=== PATIENT | female | born 1970 | race Caucasian/White ===

== ENCOUNTER 2018-04-26 07:20 | Emergency (ER) | payer BC ==
[2018-04-26 07:38] VITALS: BP 108/64
--- NOTE | 2018-04-26 07:52 | UC ---
Eye Complaint HPI - HPI Summary HPI Summary: Awoke this AM with left eye redness, swelling and crusting discharge. - History of Current Complaint Chief Complaint: UCEye Stated Complaint: LEFT EYE Time Seen by Provider: 04/26/18 07:42 Hx Obtained From: Patient Hx Last Menstrual Period: 04/10/18 ?: No Onset/Duration: Sudden Onset, Worse Since - this AM Timing: Constant Severity Initially: Mild Severity Currently: Mild Pain Intensity: 2 Location of Injury: Conjunctiva Character: Dull - "annoying", Foreign Body Sensation - Feels like there's something in it. Aggravating Factor(s): Contact Lens, Blinking Alleviating Factor(s): Nothing Associated Signs And Symptoms: Positive: Drainage (Clear), Swelling Related History: Similar Episode - pink eye - Risk Factors Penetrating Injury Risk Factor: Negative Globe Rupture Risk Factors: Negative - Allergies/Home Medications Allergies/Adverse Reactions: Allergies Allergy/AdvReac Type Severity Reaction Status Date / Time No Known Allergies Allergy Verified 04/26/18 07:30 Home Medications: Home Medications Ascorbic Acid TAB* [Vitamin C TAB*] 1 tab PO DAILY 04/26/18 [History Confirmed 04/26/18] Flaxseed 1 tab PO DAILY 04/26/18 [History Confirmed 04/26/18] PMH/Surg Hx/FS Hx/Imm Hx Previously Healthy: Yes - Surgical History Surgical History: Yes Surgery Procedure, Year, and Place: neurocytoma removal. T&A. - Family History Known Family History: Positive: Hypertension Negative: Cardiac Disease, Diabetes - Social History Occupation: Employed Full-time Lives: With Family Alcohol Use: Occasionally Substance Use Type: None Smoking Status (MU): Never Smoked Tobacco Have You Smoked in the Last Year: No - Immunization History Most Recent Influenza Vaccination: JUN 2016 Review of Systems Eyes: Drainage, Eye Redness Is Patient Immunocompromised?: No All Other Systems Reviewed And Are Negative: Yes Physical Exam Triage Information Reviewed: Yes Appearance: Well-Appearing, No Pain Distress, Well-Nourished Vital Signs: Initial Vital Signs Temp 98.0 F 04/26/18 07:32 Pulse 65 04/26/18 07:32 Resp 16 04/26/18 07:32 BP 108/64 04/26/18 07:32 Pulse Ox 99 04/26/18 07:32 Vital Signs Reviewed: Yes Eyes: Positive: Conjunctiva Inflamed - OS. No FB with lid inversion ENT Exam: Normal Neck exam: Normal Respiratory Exam: Normal Cardiovascular Exam: Normal Musculoskeletal Exam: Normal Neurological Exam: Normal Psychological Exam: Normal Skin Exam: Normal Eye Complaint Course/Dx - Differential Dx/Diagnosis Differential Diagnosis/HQI/PQRI: Conjunctivitis, Corneal Abrasion, Foreign Body Provider Diagnoses: Viral conjunctivitis Discharge - Sign-Out/Discharge Documenting (check all that apply): Patient Departure - Discharge Plan Condition: Stable Disposition: HOME Prescriptions: Erythromycin OPTH OINT* [Erythromycin 0.5% OPTH OINT*] 1 applic LEFT EYE TID #1 ophth.oint Patient Education Materials: Conjunctivitis (ED), Erythromycin (Into the eye) Referrals: Sergio Merino MD [Primary Care Provider] - - Billing Disposition and Condition Condition: STABLE Disposition: Home
== END 2018-04-26 08:01 | disposition home or self-care (01) ==
LOC: UCCORT 07:20
DX: B30.9 Viral conjunctivitis, unspecified (principal)
CPT/HCPCS: 99212; G0463

== ENCOUNTER 2019-12-16 07:50 | Emergency (ER) | payer BC ==
[2019-12-16 08:11] VITALS: BP 101/70
--- NOTE | 2019-12-16 08:44 | UC ---
Throat Pain/Nasal Bebo HPI - HPI Summary HPI Summary: 49 yo with 3 days of sore throat and drainage, morning cough, no fever. - History of Current Complaint Chief Complaint: UCRespiratory Stated Complaint: COUGH LARYNGITIS Time Seen by Provider: 12/16/19 08:38 Hx Obtained From: Patient Hx Last Menstrual Period: 12/02/19 Onset/Duration: Gradual Onset, Lasting Days - 3 Severity: Mild Pain Intensity: 0 Cough: Productive - in morning only Associated Signs & Symptoms: Positive: Dysphagia, Hoarseness, Nasal Discharge. Negative: Wheezing, Sinus Discomfort, Fever, Vomiting - Epiglottits Risk Factors Epiglottis Risk Factors: Negative - Allergies/Home Medications Allergies/Adverse Reactions: Allergies Allergy/AdvReac Type Severity Reaction Status Date / Time No Known Allergies Allergy Verified 12/16/19 07:59 Home Medications: Home Medications [id number] 2,000 mcg SL DAILY 01/15/14 [History Confirmed 12/16/19] Cholecalciferol [Vitamin D3] 2,000 unit PO DAILY 10/10/15 [History Confirmed 08/26] Ascorbic Acid TAB* [Vitamin C TAB*] 1 tab PO DAILY 04/26/18 [History Confirmed 12/16/19] Flaxseed 1 tab PO DAILY 04/26/18 [History Confirmed 12/16/19] Doxylam/PE/Dm/Acetaminophen/GG [Mucinex Fast-Max Day/Nigh] 1 cap PO PRN [History] Doxylam/PE/Dm/Acetaminophen/GG [Mucinex Sinus-Max Day/Nig] 1 cap PO PRN [History] PMH/Surg Hx/FS Hx/Imm Hx Previously Healthy: Yes - Surgical History Surgical History: Yes Surgery Procedure, Year, and Place: neurocytoma removal 1998. T&A. - Family History Known Family History: Positive: Hypertension, Respiratory Disease - both parents [place] lung Negative: Cardiac Disease, Diabetes - Social History Occupation: Employed Full-time Lives: With Family Alcohol Use: Rare Substance Use Type: None Smoking Status (MU): Never Smoked Tobacco Have You Smoked in the Last Year: No - Immunization History Most Recent Influenza Vaccination: JUN 2016 Review of Systems All Other Systems Reviewed And Are Negative: Yes Constitutional: Positive: Fatigue. Negative: Fever Skin: Positive: Negative Eyes: Positive: Negative ENT: Positive: Sore Throat, Sinus Congestion Respiratory: Positive: Cough - mild. Negative: Shortness Of Breath Cardiovascular: Negative: Palpitations, Chest Pain Gastrointestinal: Positive: Negative Genitourinary: Positive: Negative Motor: Positive: Negative Neurovascular: Positive: Negative Musculoskeletal: Positive: Negative Neurological/Mental Status: Positive: Negative Psychological: Positive: Negative Is Patient Immunocompromised?: No Physical Exam Triage Information Reviewed: Yes Appearance: No Pain Distress, Ill-Appearing - looks mildly unwell Vital Signs: Initial Vital Signs Temp 98.8 F 12/16/19 08:01 Pulse 88 12/16/19 08:01 Resp 18 12/16/19 08:01 BP 101/70 12/16/19 08:01 Pulse Ox 99 12/16/19 08:01 ENT: Positive: Pharyngeal erythema, TMs normal Neck: Positive: Supple, Nontender, No Lymphadenopathy Respiratory: Positive: Lungs clear, Normal breath sounds Cardiovascular: Positive: RRR, No Murmur Musculoskeletal Exam: Normal Neurological Exam: Normal Psychological Exam: Normal Skin Exam: Normal Throat Pain/Nasal Course/Dx - Course Course Of Treatment: Symptomatic treatment of viral pharyngitis/laryngitis. - Differential Dx/Diagnosis Differential Diagnosis/HQI/PQRI: Influenza, Laryngitis, Pharyngitis, Tonsillitis , URI Provider Diagnosis: Laryngitis Discharge ED - Sign-Out/Discharge Documenting (check all that apply): Patient Departure All imaging exams completed and their final reports reviewed: No Studies - Discharge Plan Condition: Stable Disposition: HOME Patient Education Materials: Laryngitis (ED) Forms: *Work Release Referrals: Sergio Merino MD [Primary Care Provider] - Additional Instructions: Continue symptomatic treatment and rest at home. Increase fluids and warm drinks, and rest your voice. Follow up if you develop fever, shortness of breath or have worsening symptoms. - Billing Disposition and Condition Condition: STABLE Disposition: Home
== END 2019-12-16 09:09 | disposition home or self-care (01) ==
LOC: UCCORT 07:50
DX: J04.0 Acute laryngitis (principal)
CPT/HCPCS: 99211; G0463